=== PATIENT | female | born 1950 | race Caucasian/White ===

== ENCOUNTER 2019-03-19 16:36 | Outpatient (RCR) | payer MEDICARE, MEDICAID, SELFPAY | END 2019-04-02 00:01 | LOC: ONCMED 16:36 | PROVIDERS: Family Provider Nurse Practitioner Family; Visit Provider Internal Medicine Hematology & Oncology | DX: Z53.9 Procedure and treatment not carried out, unspecified reason (principal) ==

== ENCOUNTER 2019-03-31 06:55 | Emergency (ER) | payer MEDICARE, MEDICAID, SELFPAY | END 2019-03-31 08:37 | disposition home or self-care (01) | PROVIDERS: Emergency Provider Nurse Practitioner Family; Family Provider Nurse Practitioner Family; Visit Provider Nurse Practitioner Family | DX: S80.02XA Contusion of left knee, initial encounter (principal); S80.12XA Contusion of left lower leg, initial encounter; W19.XXXA Unspecified fall, initial encounter; Y92.009 Unspecified place in unspecified non-institutional (private) residence as the place of occurrence of the external cause; I25.2 Old myocardial infarction; E11.9 Type 2 diabetes mellitus without complications; Z95.0 Presence of cardiac pacemaker; Z87.891 Personal history of nicotine dependence; Z88.5 Allergy status to narcotic agent; Z91.040 Latex allergy status; Z88.0 Allergy status to penicillin; I50.9 Heart failure, unspecified | CPT/HCPCS: 73562; 73590; 99283 ==

== ENCOUNTER 2019-04-03 15:23 | Inpatient (IN) | payer OTHER, SELFPAY ==
[2019-04-03] VITALS (11 sets, daily range): BP systolic 153–212; BP diastolic 89–122; PULSE 72–140; RESP 12–22; O2SAT 97–100; BMI 40.3
--- NOTE | 2019-04-03 15:31 | ED_ITS ---
Entered by Anna Marie Garcia, acting as scribe for HPI - Altered Mental Status General: Chief Complaint: Altered Mental Status Stated Complaint: AMS Time Seen by Provider: 04/03/19 15:31 Source: EMS Mode of arrival: EMS Limitations: altered mental status History of Present Illness: HPI narrative: 69 yo f came to the er by ems for altered mental status and unresponsive. 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 Ems stated that when they got to the pts home she was altered. Severity: severe Review of Systems General: Reports: 10 or more systems reviewed and unremarkable except in HPI and below Const: Reports: other (unknown) Eyes: Reports: other (unknown) ENMT: Reports: other (unknown) Card: Reports: shortness of breath on exertion and other Resp: Reports: shortness of breath GI: Reports: other (unknown) : Reports: other (unknown) Musc: Reports: other (unknown) Skin/Breast: Denies: changes in skin color Neuro: Denies: headache Psych: Denies: anxiety Endo: Denies: excessive urination Jean Pierre/Lymph: Denies: easy bruising All/Imm: Denies: hives PFSH ED PFSH: Statuses (acute, chronic, etc) shown below reflect problem list status as previously entered and may not be historically accurate Social History Smoking and tobacco status: unknown if ever smoked Physical Exam Const: COMMON NORMALS: negative for alert EXAM LIMITATIONS: altered mental status NUTRITIONAL APPEARANCE: overweight HENMT: COMMON NORMALS: external ears normal EXTERNAL EAR: Yes external ears normal Eye: COMMON NORMALS: PERRL and conjunctivae normal GENERAL EYE: normal appearance of both eyes VISUAL ACUITY: Yes acuity normal VISUAL MADDOX: No peripheral vision loss PERIORBITAL: periorbital findings normal EYELID: eyelids normal CONJUNCTIVA: Yes conjunctivae normal SCLERA: sclerae normal PUPIL: Yes PERRL Neck/C-Spine: COMMON NORMALS: full ROM Chest: COMMONS NORMALS: inspection of chest normal Resp: EFFORT & INSPECTION: Yes actively coughing GI: COMMON NORMALS: normal to inspection, nondistended, normoactive bowel sounds INSPECTION: Yes normal to inspection : COMMON NORMALS: Yes no CVA tenderness BLADDER/KIDNEY EXAM: Yes no CVA tenderness and No CVA tenderness Back/Pelvis: COMMON NORMALS: no CVA tenderness GENERAL BACK: No CVA tenderness Neuro: SENSORIUM/ORIENTATION: No alert Psych: COMMON NORMALS: negative for mental status grossly normal Procedures Central Line Placement 1538: Time Out Performed: Yes (1537) MD Prep: mask, gown and gloves Central Line Prep: Povidone-Iodine 1% Local Anesthetic: lidocaine 1% Ultrasound Used for Placement: No Post Procedure: sutured in place, good blood return, all ports aspirated, flushed, capped and sterile dressing applied Complications: none Intubation Time out performed: Yes (1531) sedative: Etomidate paralytic: Succinylcholine Course ED course: Patient's family arrived and told me that the patient was on hospice and was supposed to be DO NOT RESUSCITATE and DO NOT INTUBATE. I discussed this with the family at length. After conferring with other family members the patient's daughter stated that the patient does not want to be on a ventilator and would want us to extubate her and place her on palliative care status. Patient was terminally extubated in the emergency room at 2135. Vital Signs: Vital signs: Vital Signs Pulse Rate 74 04/03/19 18:58 Respiratory Rate 18 04/03/19 18:58 Blood Pressure 153/94 04/03/19 18:58 Pulse Oximetry 100 04/03/19 18:58 MDM - Altered Mental Status Lab Data: Labs: Lab Results 04/03/19 04/03/19 04/03/19 Range/Units 15:50 15:50 15:50 WBC 3.7 L (4.0-10.0) 10^3/ uL RBC 3.14 L (4.1-5.3) 10^6/u L Hgb 10.3 L (11.5-15.3) g/dL Hct 31.9 L (37.0-47.0) % MCV 101.6 H (81-99) fL MCH 32.8 (28.0-34.0) pg MCHC 32.3 (30.0-36.0) g/dL RDW 16.0 H (12.1-15.1) % Plt Count 64 L (130-400) 10^3/c mm MPV 10.6 H (7.4-10.4) fL Neut % (Auto) 68.5 % Lymph % (Auto) 12.4 % Hubbard % (Auto) 11.0 % Eos % (Auto) 5.4 % Baso % (Auto) 1.9 % Neut # (Auto) 2.6 (1.8-7.7) 10^3/u L Lymph # (Auto) 0.5 L (0.8-4.8) 10^3/u L Hubbard # (Auto) 0.4 (0.2-0.9) 10^3/u L Eos # (Auto) 0.2 (0.0-0.8) 10^3/u L Baso # (Auto) 0.1 (0.0-0.1) 10^3/u L Nucleated RBC % (a uto) 0 % Nucleated RBCs # 0.0 /100WBC Sodium 133 L (136-145) mmol/L Potassium 5.7 H (3.5-5.1) mmol/L Chloride 103 (98-107) mmol/L Carbon Dioxide 23 (22-29) mmol/L Anion Gap 12.7 (5-19) BUN 22 (8-23) mg/dL Creatinine 1.0 H (0.5-0.9) mg/dL GFR Calculation 55.3 L (90-130) mL/min Glucose 158 H (74-106) mg/dL POC Glucose (70-110) mg/dL Lactate 1.7 (0.5-2.2) mmol/L Calcium 9.1 (8.8-10.2) mg/Dl Phosphorus 2.5 (2.5-4.5) mg/dL Magnesium 2.2 (1.7-2.3) mg/dL Total Bilirubin 3.5 H (0.15-1.2) mg/dL AST 70 H (0-32) U/L ALT 29 (0-33) U/L Alkaline Phosphata se 292 H (35-105) IU/L Ammonia (11-51) umol/L Troponin T Baselin e (0-10) ng/mL Troponin T 120 Min [place] (0-10) ng/mL Delta Troponin T (0-10) ABS# NT-Pro-B Natriuret Pep 90 (0-125) pg/mL Total Protein 7.0 (6.6-8.7) g/dL Albumin 2.6 L (3.5-5.2) g/dL Globulin 4.4 (1.3-4.6) g/dL Lipase 94 H (13-60) U/L Urine Color (Yellow) Urine Appearance (CLEAR) Urine pH (5-7) Ur Specific Gravit y (1.005-1.030) Urine Protein (Negative) Urine Glucose (UA) (Normal) Urine Ketones (Negative) Urine Occult Blood (Negative) Urine Nitrate (Negative) Urine Bilirubin (Negative) Urine Urobilinogen (Negative) mg/dL Ur Leukocyte Leesa ase (Negative) Urine RBC (0-2) /hpf Urine WBC (0-5) /hpf Ur Squamous Epith Cells (0-5) Urine Bacteria (NONE) Urine Mucus Urine Opiates Scre en (Negative) ng/mL Ur Barbiturates Sc reen (Negative) ng/mL Ur Phencyclidine S crn (Negative) ng/mL Ur Amphetamines Sc reen (Negative) ng/mL U Benzodiazepines Scrn (Negative) ng/mL Urine Cocaine Scre en (Negative) ng/mL U Marijuana (THC) Screen (Negative) ng/mL Ethyl Alcohol < 10 (0-10) mg/dL 04/03/19 04/03/19 04/03/19 Range/Units 15:50 15:50 15:53 WBC (4.0-10.0) 10^3/ uL RBC (4.1-5.3) 10^6/u L Hgb (11.5-15.3) g/dL Hct (37.0-47.0) % MCV (81-99) fL MCH (28.0-34.0) pg MCHC (30.0-36.0) g/dL RDW (12.1-15.1) % Plt Count (130-400) 10^3/c mm MPV (7.4-10.4) fL Neut % (Auto) % Lymph % (Auto) % Hubbard % (Auto) % Eos % (Auto) % Baso % (Auto) % Neut # (Auto) (1.8-7.7) 10^3/u L Lymph # (Auto) (0.8-4.8) 10^3/u L Hubbard # (Auto) (0.2-0.9) 10^3/u L Eos # (Auto) (0.0-0.8) 10^3/u L Baso # (Auto) (0.0-0.1) 10^3/u L Nucleated RBC % (a uto) % Nucleated RBCs # /100WBC Sodium (136-145) mmol/L Potassium (3.5-5.1) mmol/L Chloride (98-107) mmol/L Carbon Dioxide (22-29) mmol/L Anion Gap (5-19) BUN (8-23) mg/dL Creatinine (0.5-0.9) mg/dL GFR Calculation (90-130) mL/min Glucose (74-106) mg/dL POC Glucose (70-110) mg/dL Lactate (0.5-2.2) mmol/L Calcium (8.8-10.2) mg/Dl Phosphorus (2.5-4.5) mg/dL Magnesium (1.7-2.3) mg/dL Total Bilirubin (0.15-1.2) mg/dL AST (0-32) U/L ALT (0-33) U/L Alkaline Phosphata se (35-105) IU/L Ammonia 307 H (11-51) umol/L Troponin T Baselin e 31 H (0-10) ng/mL Troponin T 120 Min [place] (0-10) ng/mL Delta Troponin T (0-10) ABS# NT-Pro-B Natriuret Pep (0-125) pg/mL Total Protein (6.6-8.7) g/dL Albumin (3.5-5.2) g/dL Globulin (1.3-4.6) g/dL Lipase (13-60) U/L Urine Color Yellow (Yellow) Urine Appearance Clear (CLEAR) Urine pH 7.0 (5-7) Ur Specific Gravit y 1.010 (1.005-1.030) Urine Protein Neg (Negative) Urine Glucose (UA) Norm (Normal) Urine Ketones Negative (Negative) Urine Occult Blood Neg (Negative) Urine Nitrate Negative (Negative) Urine Bilirubin Neg (Negative) Urine Urobilinogen 1 H (Negative) mg/dL Ur Leukocyte Leesa ase Negative (Negative) Urine RBC 0-4 H (0-2) /hpf Urine WBC None (0-5) /hpf Ur Squamous Epith Cells 0-4 H (0-5) Urine Bacteria 1+ H (NONE) Urine Mucus 2+ Urine Opiates Scre en (Negative) ng/mL Ur Barbiturates Sc reen (Negative) ng/mL Ur Phencyclidine S crn (Negative) ng/mL Ur Amphetamines Sc reen (Negative) ng/mL U Benzodiazepines Scrn (Negative) ng/mL Urine Cocaine Scre en (Negative) ng/mL U Marijuana (THC) Screen (Negative) ng/mL Ethyl Alcohol (0-10) mg/dL 04/03/19 04/03/19 04/03/19 Range/Units 15:53 16:20 17:50 WBC (4.0-10.0) 10^3/ uL RBC (4.1-5.3) 10^6/u L Hgb (11.5-15.3) g/dL Hct (37.0-47.0) % MCV (81-99) fL MCH (28.0-34.0) pg MCHC (30.0-36.0) g/dL RDW (12.1-15.1) % Plt Count (130-400) 10^3/c mm MPV (7.4-10.4) fL Neut % (Auto) % Lymph % (Auto) % Hubbard % (Auto) % Eos % (Auto) % Baso % (Auto) % Neut # (Auto) (1.8-7.7) 10^3/u L Lymph # (Auto) (0.8-4.8) 10^3/u L Hubbard # (Auto) (0.2-0.9) 10^3/u L Eos # (Auto) (0.0-0.8) 10^3/u L Baso # (Auto) (0.0-0.1) 10^3/u L Nucleated RBC % (a uto) % Nucleated RBCs # /100WBC Sodium (136-145) mmol/L Potassium (3.5-5.1) mmol/L Chloride (98-107) mmol/L Carbon Dioxide (22-29) mmol/L Anion Gap (5-19) BUN (8-23) mg/dL Creatinine (0.5-0.9) mg/dL GFR Calculation (90-130) mL/min Glucose (74-106) mg/dL POC Glucose 128 (70-110) mg/dL Lactate (0.5-2.2) mmol/L Calcium (8.8-10.2) mg/Dl Phosphorus (2.5-4.5) mg/dL Magnesium (1.7-2.3) mg/dL Total Bilirubin (0.15-1.2) mg/dL AST (0-32) U/L ALT (0-33) U/L Alkaline Phosphata se (35-105) IU/L Ammonia (11-51) umol/L Troponin T Baselin e (0-10) ng/mL Troponin T 120 Min [place] 68.77 H (0-10) ng/mL Delta Troponin T 37.77 H (0-10) ABS# NT-Pro-B Natriuret Pep (0-125) pg/mL Total Protein (6.6-8.7) g/dL Albumin (3.5-5.2) g/dL Globulin (1.3-4.6) g/dL Lipase (13-60) U/L Urine Color (Yellow) Urine Appearance (CLEAR) Urine pH (5-7) Ur Specific Gravit y (1.005-1.030) Urine Protein (Negative) Urine Glucose (UA) (Normal) Urine Ketones (Negative) Urine Occult Blood (Negative) Urine Nitrate (Negative) Urine Bilirubin (Negative) Urine Urobilinogen (Negative) mg/dL Ur Leukocyte Leesa ase (Negative) Urine RBC (0-2) /hpf Urine WBC (0-5) /hpf Ur Squamous Epith Cells (0-5) Urine Bacteria (NONE) Urine Mucus Urine Opiates Scre en Negative (Negative) ng/mL Ur Barbiturates Sc reen Negative (Negative) ng/mL Ur Phencyclidine S crn Negative (Negative) ng/mL Ur Amphetamines Sc reen Negative (Negative) ng/mL U Benzodiazepines Scrn Negative (Negative) ng/mL Urine Cocaine Scre en Negative (Negative) ng/mL U Marijuana (THC) Screen Negative (Negative) ng/mL Ethyl Alcohol (0-10) mg/dL Discharge Plan Discharge Condition: Critical Prescriptions: No Action Unable to Assess RF: 0 Coding Level of Care Code ED 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
--- NOTE | 2019-04-03 15:54 | XRR_ITS ---
PROCEDURE INFORMATION: Exam: XR Chest, 1 View Exam date and time: 04/03/2019 3:59 PM Age: 69 years old Clinical indication: Device placement; Other: Central line placement; Additional info: Unknown TECHNIQUE: Imaging protocol: XR of the chest Views: 1 view. COMPARISON: CR Chest 1 [place] [id number] 03/15/2019 9:39 AM FINDINGS: Tubes, catheters and devices: There is an ET tube with tip below the clavicular heads but above the parker. There is an orogastric tube with tip off the film. There is a right subclavian central line with tip in the right atrium. A pacemaker device is present, and its leads are in appropriate position. Lungs: Nonspecific increasing bibasilar consolidation is present, consistent with atelectasis, edema, or pneumonia. This is greater on the left. There is also mild increased vascular congestion/CHF compared to the prior exam. Pleural space: Unremarkable. No pleural effusion. No pneumothorax. Heart/Mediastinum: The heart is enlarged. Bones/joints: Unremarkable. XR/XR chest 1V portable [id number] IMPRESSION: 1. There is an ET tube with tip below the clavicular heads but above the parker. There is an orogastric tube with tip off the film. There is a right subclavian central line with tip in the right atrium. 2. Nonspecific increasing bibasilar consolidation is present, consistent with atelectasis, edema, or pneumonia. This is greater on the left. Increasing vascular congestion/CHF.
--- NOTE | 2019-04-03 15:57 | ECG_ITS ---
Measurements Intervals [place] Rate: 102 P: 41 MI: 212 QRS: -57 QRSD: 135 T: 77 QT: 352 QTc: 459 SINUS TACHYCARDIA WITH FIRST DEGREE AV BLOCK WITH OCCASIONAL VENTRICULAR PREMATURE COMPLEXES LEFT AXIS DEVIATION [QRS AXIS < -30] INTRAVENTRICULAR CONDUCTION DELAY [130+ ms QRS DURATION] ANTEROLATERAL MYOCARDIAL INFARCTION , OF INDETERMINATE AGE Compared to ECG 03/15/2019 09:29:29 First degree AV block now present Left-axis deviation now present Intraventricular conduction delay now present Sinus rhythm no longer present Left anterior fascicular block no longer present Myocardial infarct finding still present Electronically Signed On 04-04-2019 6:54:08 FELT PULLER by Ann Lund M.D. [id number]
[2019-04-03] MEDS: succinylcholine 20 mg/mL SDV 10mL 200 MG IVP (15:58)
[2019-04-03 16:05] LABS: Add RBC Morph No; Basophils # 0.1 10^3/uL (0.0-0.1); Basophils % 1.9 %; Eosinophils # 0.2 10^3/uL (0.0-0.8); Eosinophils % 5.4 %; Hematocrit 31.9 % (37.0-47.0); Hemoglobin 10.3 g/dL (11.5-15.3); Lymphocytes # 0.5 10^3/uL (0.8-4.8); Lymphocytes % 12.4 %; Mean Corpuscular HGB Conc 32.3 g/dL (30.0-36.0); Mean Corpuscular Hemoglobin 32.8 pg (28.0-34.0); Mean Corpuscular Volume 101.6 fL (81-99); Mean Platelet Volume 10.6 fL (7.4-10.4); Monocytes # 0.4 10^3/uL (0.2-0.9); Neutrophils # 2.6 10^3/uL (1.8-7.7); Neutrophils % 68.5 %; Nucleated Red Blood Cells % 0 %; Platelet Count 64 10^3/cmm (130-400); Red Blood Count 3.14 10^6/uL (4.1-5.3); White Blood Count 3.7 10^3/uL (4.0-10.0)
--- NOTE | 2019-04-03 16:08 | PM.CONSULT ---
Providers/Reason For Consult Consulting Physican/Specialty*: Dr. Lund, cardiology Reason for Consult*: Abnormal EKG History of Present Illness History of Present Illness Justina Swanson is a 69 year old female with PMHx of DM-2, hypothyroidism, s/p PPM in 2008 and generator change in 2017, h/o lupus, h/o esophageal varices, former smoker and fibromyalgia. She uses PRN O2 at 4L at home and has Non alcoholic liver cirrhosis. # EKG with sinus arrhythmia. LAFB and IVCD. Meds/Allergies Home Medications and Allergies Home Medications Medication Instructions Recorded Confirmed Type Unable to Assess 04/03/19 04/03/19 History Allergies Allergy/AdvReac Type Severity Reaction Status Date / Time Unable to Assess Allergy Unverified 04/03/19 16:01 PFSH Acute PFSH: Statuses (acute, chronic, etc) shown below reflect problem list status as previously entered and may not be historically accurate Social History Smoking and tobacco status: unknown if ever smoked Vitals/I&O/Wt Last Vital Signs Pulse 140 H 04/03/19 15:40 Resp 22 H 04/03/19 15:55 BP 212/122 04/03/19 15:40 Pulse Ox 99 04/03/19 15:40 Weight last 48 hrs Weight 250 lb Physical Exam Urinary Catheter Management^: Romo: Cath Placed During This Visit: no Data Labs: Other Labs: All Labs last 24 hrs except CBC/BMP 04/03/19 15:50 RBC 3.14 L MCV 101.6 H MCH 32.8 MCHC 32.3 RDW 16.0 H MPV 10.6 H Neut % (Auto) 68.5 Lymph % (Auto) 12.4 [place] % (Auto) 11.0 Eos % (Auto) 5.4 Baso % (Auto) 1.9 Neut # (Auto) 2.6 Lymph # (Auto) 0.5 L [place] # (Auto) 0.4 Eos # (Auto) 0.2 Baso # (Auto) 0.1 Nucleated RBC % (a uto) 0 Nucleated RBCs # 0.0 A&P Assessment and plan (1) Altered mental status: Status: Acute Code(s): R41.82 - Altered mental status, unspecified (2) Respiratory failure: Status: Acute Code(s): J96.90 - Respiratory failure, unspecified, unspecified whether with hypoxia or hypercapnia (3) Abnormal electrocardiogram [ECG] [EKG]: Status: Acute Code(s): R94.31 - Abnormal electrocardiogram [ECG] [EKG] Coding Level of Care Code Acute Returned Goods Inspector for [facility] Fwd Diagnoses Altered mental status R41.82 Respiratory failure J96.90 Abnormal electrocardiogram [ECG] [EKG] R94.31
[2019-04-03 16:19] LABS: Ammonia 307 umol/L (11-51); Lactate (Lactic Acid level) 1.7 mmol/L (0.5-2.2)
--- NOTE | 2019-04-03 16:25 | PC.NURSE ---
Pt was brought to ED via EMS, pt was unresponsive and did not respond to painful stimuli. Pt placed on zoll, EKG performed, IV access obtained in right shoulder with 18g peripheral IV. At 1529, 20mg Etomidate IVP was given, followed by 10ml NS flush, followed by 200mg Succinylcholine, followed by another 10ml NS flush. Pt was then intubated with 8.0tube, secured 23 at the lip by Dr Lopez, RT at bedside. 14 Fr OG tube was placed at 1538, 18fr luis catheter placed at 1540 with good urine return, clear yellow urine, with sample obtained, labeled and sent to lab. Central line placed by Dr Lopez at bedside at 1541 (see IV catheter placement documentation) and xray at bedside at 1546 to confirm placement of ET tube, OG tube, and central line. Blood drawn from central line by this RN, 10ml wasted, 20ml drawn and labeled, sent to lab, and central line flushed with 30ml sterile saline. BSG performed by this RN at bedside, 128mg/dL. Pt remains intubated at this time. Family updated on pt status.
[2019-04-03 16:28] LABS: Glucose Point of Care 128 mg/dL (70-110)
[2019-04-03 16:29] LABS: Troponin(5th) Baseline 31 ng/mL (0-10)
[2019-04-03 16:30] LABS: Alanine Aminotransferase 29 U/L (0-33); Albumin Level 2.6 g/dL (3.5-5.2); Alkaline Phosphatase 292 IU/L (35-105); Anion Gap 12.7 (5-19); Aspartate Amino Transferase 70 U/L (0-32); Blood Urea Nitrogen 22 mg/dL (8-23); Calcium 9.1 mg/Dl (8.8-10.2); Carbon Dioxide 23 mmol/L (22-29); Chloride 103 mmol/L (98-107); Globulin 4.4 g/dL (1.3-4.6); Glomerular Filtration Rate 55.3 mL/min (90-130); Glucose 158 mg/dL (74-106); Magnesium 2.2 mg/dL (1.7-2.3); NT Pro B Type Natriuretic Pept 90 pg/mL (0-125); Phosphorus 2.5 mg/dL (2.5-4.5); Potassium 5.7 mmol/L (3.5-5.1); Sodium 133 mmol/L (136-145); Total Bilirubin 3.5 mg/dL (0.15-1.2)
[2019-04-03 16:35] LABS: Bilirubin Urine Neg (Negative); Blood Urine Neg (Negative); Glucose Urine UA Norm (Normal); Ketones Urine Negative (Negative); Leukocyte Esterase Urine Negative (Negative); Nitrate Urine Negative (Negative); Protein Urine Neg (Negative); Urine Appearance Clear (CLEAR); Urine Color Yellow (Yellow); Urobilinogen Urine 1 mg/dL (Negative)
[2019-04-03 16:43] LABS: Alcohol Level < 10 mg/dL (0-10); Lipase 94 U/L (13-60)
[2019-04-03 16:43] LABS: Add Urine Culture? No; Bacteria Urine 1+; Mucus Urine 2+; RBC Urine 0-4 /hpf (0-2); Squamous Epithelial Cell Urine 0-4 (0-5)
[2019-04-03] MEDS: sodium chloride 0.9% 500 ML IV (16:49)
[2019-04-03 16:52] LABS: Amphetamines Screen Urine Negative (Negative); Barbiturates Screen Urine Negative (Negative); Benzodiazepines Screen Urine Negative (Negative); Cocaine Screen Urine Negative (Negative); Opiate Screen Urine Negative (Negative); PCP Screen Urine Negative (Negative); THC Screen Urine Negative (Negative)
[2019-04-03] MEDS: propofol 1,000 MG/100 ML INJ 3.4 MG IV (17:10)
[2019-04-03 18:51] LABS: Troponin 5 2HR 68.77 ng/mL (0-10)
[2019-04-03 18:52] LABS: Troponin 5 2HR Delta 37.77 ABS# (0-10)
--- NOTE | 2019-04-03 19:13 | PC.NURSE ---
Report received from GREY Kumar and transferred to GREY Aguilar.
--- NOTE | 2019-04-03 21:57 | ECG_ITS ---
Measurements Intervals [place] Rate: 77 P: 22 MS: 225 QRS: -56 QRSD: 137 T: 59 QT: 433 QTc: 493 SINUS RHYTHM WITH FIRST DEGREE AV BLOCK LEFT AXIS DEVIATION INTRAVENTRICULAR CONDUCTION DELAY POSSIBLE ANTERIOR MYOCARDIAL INFARCTION , OF INDETERMINATE AGE Compared to ECG 03/15/2019 09:29:29 First degree AV block now present Intraventricular conduction delay now present Left anterior fascicular block no longer present Myocardial infarct finding still present Electronically Signed On 04-04-2019 7:01:34 LEASE ANALYST by Ann Lund M.D. [id number]
[2019-04-03 23:23] LABS: Troponin 5 6HR 211.8 ng/L (0-10); Troponin 5 6HR Delta 170 ng/L (0-12)
[2019-04-04] VITALS (9 sets, daily range): BP systolic 148–184; BP diastolic 60–95; PULSE 61–79; RESP 14–22; TEMP 36.4–36.9; O2SAT 95–100
--- NOTE | 2019-04-04 00:43 | PM.HP ---
Providers/Chief Complaint Chief Complaint: AMS History of Present Illness Justina Swanson is a 69 year old female who carries diagnosis of liver cirrhosis secondary to lupus status post TIPS procedure history of multiple admissions secondary to hepatic encephalopathy, pancytopenia, type 2 diabetes chronic kidney disease stage III, morbid obesity and hypothyroid myxedema, she was discharged from the hospital on relatively higher dose of levothyroxine when she was found to have extremely high level of TSH on previous admission. She was brought in by EMS today when she was found altered at home, patient was intubated by ER physician Dr. Aguilar, daughter called and said patient was on hospice services at home and she is DNR/DNI and she was terminally extubated around 2134, hospice nurse was also called who recommended watching her for any distress and treat her to keep her comfortable. Hospitalist service was requested to admit her to medical floor and keep her on comfort measures/hospice current blood pressure when I evaluated the patient was 180s/100, telemetry was showing normal sinus rhythm heart rate 70, patient was extubated, she was withdrawing to painful stimuli, she did not open her eyes to me, she was moving her left arm and leg. Review of Systems Narrative: Patient was initially intubated because of altered mental status and was terminally extubated She is morbidly obese female with myxedema, Not able to provide any details she is not opening her eyes review of symptoms limited Medications/Allergies Home Medications Medication Instructions Recorded Confirmed Last Taken Type Unable to Assess 04/03/19 04/03/19 Unknown History Allergies Allergy/AdvReac Type Severity Reaction Status Date / Time Unable to Assess Allergy Unverified 04/03/19 16:01 PFSH Acute PFSH: Statuses (acute, chronic, etc) shown below reflect problem list status as previously entered and may not be historically accurate Medical History (Updated 04/04/19 @ 00:47 by Carlo Mcmillan MD) Hepatic encephalopathy (Acute) Liver cirrhosis (Acute) Lupus (Acute) Myxedema coma (Acute) Pancytopenia (Acute) Type 2 diabetes mellitus (Acute) Surgical History (Updated 04/04/19 @ 00:48 by Carlo Mcmillan MD) H/O knee surgery (Acute) History of appendectomy (Acute) History of permanent cardiac pacemaker placement (Acute) S/P TIPS (transjugular intrahepatic portosystemic shunt) (Acute) Family History (Updated 04/04/19 @ 00:48 by Carlo Mcmillan MD) Mother Alzheimer's dementia Social History (Updated 04/04/19 @ 00:49 by Carlo Mcmillan MD) Smoking and tobacco status: never smoked Alcohol intake: never Substance/Drug Use: never Marital status: / Vitals/I&O/Wt Last Vital Signs Pulse 80 04/03/19 23:00 Resp 12 04/03/19 23:00 BP 183/89 04/03/19 23:00 Pulse Ox 99 04/03/19 23:00 04/03/19 04/03/19 04/04/19 14:59 22:59 06:59 Intake Total 7.084 / 7.084 Balance 7.084 / 7.084 Weight last 48 hrs Weight 113.398 kg Physical Exam Narrative: EXAM NARRATIVE: Morbidly obese female, myxedema, appearance, cushingoid appearance, Patient is not opening her eyes at all to painful stimuli, she has withdrawal reflex to painful stimuli she is only moving her left arm Pursed lip breathing heart rate 70, Breath sounds diminished with rhonchi bilaterally, Abdomen soft, distended, bowel sounds sluggish Neurological status not able to be assessed because of her confusion and altered mental status Lower extremities nonpitting edema Skin dry Hirsutism positive 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 (5) Liver cirrhosis: Status: Acute Code(s): K74.60 - Unspecified cirrhosis of liver (6) Lupus: Status: Acute Code(s): M32.9 - Systemic lupus erythematosus, unspecified (7) Hepatic encephalopathy: Status: Acute Code(s): K72.90 - Hepatic failure, unspecified without coma (8) Type 2 diabetes mellitus: Status: Acute Code(s): E11.9 - Type 2 diabetes mellitus without complications (9) Pancytopenia: Status: Acute Code(s): D61.818 - Other pancytopenia Altered mental status multifactorial secondary to hepatic encephalopathy, myxedema, Initially intubated by ER physician for altered mental status and inability to protect airways, daughter called and updated that she was DNR/DNI, she was extubated terminally in ER, hospice nurse has been updated Currently patient does not look in any distress, her heart rate is 70, she is hypertensive, no respiratory distress, she is unresponsive, not opening her eyes GCS less than 8 Plan is to keep her comfortable with palliative/hospice approach I would not resume any of her home medications at this point Hospice referral Attestations Medical Necessity Statement*: Patient has been extubated terminally, she will most likely be discharged to hospice care in less than 48 hours Time Spent in Patient Care: Greater than 35 minutes 45 Coding Level of Care Code Acute Lubrication Servicer for Chg Fwd Diagnoses Altered mental status R41.82 Respiratory failure J96.90 Abnormal electrocardiogram [ECG] [EKG] R94.31 Myxedema coma E03.5 Liver cirrhosis K74.60 Lupus M32.9 Hepatic encephalopathy K72.90 Type 2 diabetes mellitus E11.9 Pancytopenia D61.818
[2019-04-04] MEDS: morphine 4 mg/mL SDV 1 mL 2 MG IV ×2 (08:44→14:12)
--- NOTE | 2019-04-04 13:49 | PM.PN ---
Subjective Subjective: Interval history: Patient admitted overnight. Overnight labs and history reviewed. Patient was extubated last night and put on comfort care measures. However the patient is awake this morning. She is able to have a conversation though is confused. She does keep repeating her date of . She is only able to answer some questions regarding orientation. However she is sitting up in bed and asking to eat food at this time. Medications: Reviewed: Yes Vitals/I&O/Wt Last Vital Signs Temp 97.8 F 04/04/19 11:54 Pulse 78 04/04/19 11:54 Resp 18 04/04/19 11:54 BP 149/77 04/04/19 11:54 Pulse Ox 96 04/04/19 11:54 04/03/19 04/04/19 04/04/19 22:59 06:59 14:59 Intake Total 7.084 / 7.084 63.823 / 70.907 240 / 240 Output Total 700 / 700 Balance 7.084 / 7.084 -636.177 / -629.093 240 / 240 Weight last 48 hrs Weight 113.398 kg Physical Exam Narrative: EXAM NARRATIVE: General patient is awake, participating in conversation however she is confused. She was able to correctly state her name date of and age for me however when I asked her questions as to place and orientation she kept repeating her date of . She was able to string sentences together and has asked me if she could eat and also was asked to put on the TV. Overall compared to last night appears to be doing better. Does not recall the events leading up to hospitalization. CVS S1-S2 normal no murmurs rubs or gallops Respiratory system clear to auscultation bilaterally GI no abdominal distention. Soft and nontender. Bowel sounds are heard. Extremities some nonpitting edema over bilateral extremities overall patient's habitus is obese. Hirsutism noted over her face. 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 (5) Liver cirrhosis: Status: Acute Code(s): K74.60 - Unspecified cirrhosis of liver (6) Lupus: Status: Acute Code(s): M32.9 - Systemic lupus erythematosus, unspecified (7) Hepatic encephalopathy: Status: Acute Code(s): K72.90 - Hepatic failure, unspecified without coma (8) Type 2 diabetes mellitus: Status: Acute Code(s): E11.9 - Type 2 diabetes mellitus without complications (9) Pancytopenia: Status: Acute Code(s): D61.818 - Other pancytopenia Altered mental status multifactorial secondary to hepatic encephalopathy which has been a longstanding issue for the patient for which she is on home hospice. Her daughter lives in the same apartment building and checks on her multiple times a day. The hospice nurse is at bedside and states that even under home hospice the patient has variable mental status. She is often found to be confused but on other days appears to be lucid. EMS was called by the daughter yesterday after the patient was noted to be unresponsive. Initially intubated by ER physician for altered mental status and inability to protect airways, daughter called and updated that she was DNR/DNI, she was extubated terminally in ER. Overnight patient was hypertensive, unresponsive, not opening her eyes GCS less than 8. However this morning since being extubated she is more alert awake sitting in bed and having a conversation although she is confused and repetitive. Plan is to keep her comfortable with palliative/hospice approach. However it is felt that returning home alone with home hospice is not going to be a very safe option for her as she is unable to care for herself due to her advanced confusion. We will make arrangements to arrange for hospice at a nursing facility which by 4 appears to be the safest option. I I will resume her home medications that she was having as part of her hospice assessment Hospice referral for placement at SNF. Attestations Medical Necessity Statement*: Admitted for altered mental status. Now social professionals arranging for discharge to a custodial facility with hospice. Coding Level of Care Code Acute Historian Research Assistant for Chg Fwd Diagnoses Altered mental status R41.82 Respiratory failure J96.90 Abnormal electrocardiogram [ECG] [EKG] R94.31 Myxedema coma E03.5 Liver cirrhosis K74.60 Lupus M32.9 Hepatic encephalopathy K72.90 Type 2 diabetes mellitus E11.9 Pancytopenia D61.818
[2019-04-04] MEDS: ondansetron 2 mg/ML SDV 2 mL 4 MG PO ×2 (14:14→20:22)
[2019-04-04] MEDS: LORazepam 0.5 mg Tablet PO (14:14)
--- NOTE | 2019-04-04 14:42 | PC.CHAP ---
Pastoral Care Encounter/Spiritual Assessment Type of Contact [] Declined apparatus cleaner visit [] Patient/Family/Request visit [] Outpatient visit [] Follow-up visit [] Physician referral [] Code/Alert [x] Routine visit [] Staff referral [] Actively dying [] Patient sleeping [] Family support [] [] Out of room [] Palliative care [] [] Receiving care in room [] Pre-surgical visit [] Trauma [] Long length of stay [] ICU visit [] Other: Relational/Emotional Strength [x] Patient feels connected with others/family/visitors/staff [] Distress [] Loneliness/isolation [] Abandonment Spirituality of Patient [x] Person of Malina [x] Attends Religion of their Malina [x] Believes in Prayer [] Reads Bible or Alevism materials [] There are Spiritual issues to be addressed Head Of Commission Department Interventions [x] Prayer [x] Active listening [x] Non-anxious presence [x] Spiritual/emotional support [] Crisis/trauma care [] Spiritual counseling [] Bereavement support [] Provided bereavement packet [] Provided Bible/devotional materials [] Provided toy/stuffed animal, coloring book to patient or family member [x] Completed spiritual assessment [] Provided Communion [] Anointing/[place] [] Salvation [] Other: Impact on Illness or Injury [] Angry [] Fearful [] Anxious [] Often cries [] Exhaustion [] Unable to work [] Unable to attend presybeterian [] Unable to walk/stand [] Unable to read [] Unable to drive [] Unable to eat/drink [] Unable to sleep [] Unable to be with family [x] Other: Did not notice any. Summary Head Of Commission Department Michelle visited with patient, she was sick and wanted nurse she wasn't feeling well. Time spent with patient 5 minutes
[2019-04-04] MEDS: lactulose oral liq 20 gm/30 mL UDC PO (16:44)
[2019-04-04] MEDS: TRAMadol 50 mg Tablet PO (16:44)
[2019-04-04] MEDS: gabapentin 300 mg Capsule PO ×2 (16:44→21:36)
[2019-04-05 03:31] VITALS: BP 152/63; PULSE 65; RESP 18; TEMP 36.9; O2SAT 94
[2019-04-05] MEDS: LORazepam 0.5 mg Tablet PO (04:25)
[2019-04-05] MEDS: lactulose oral liq 20 gm/30 mL UDC PO (04:36)
[2019-04-05 07:38] VITALS: BP 124/65; PULSE 73; RESP 18; TEMP 36.7; O2SAT 94
[2019-04-05] MEDS: levothyroxine 100 mcg Tablet 200 MCG PO (09:00)
[2019-04-05] MEDS: FUROsemide 20 mg Tablet PO (09:01)
[2019-04-05] MEDS: gabapentin 300 mg Capsule PO ×2 (09:01→12:21)
[2019-04-05] MEDS: metformin 500 mg Tablet PO (09:02)
[2019-04-05] MEDS: metoprolol succinate ER (24 HR) 25 mg Tablet PO (09:02)
[2019-04-05 11:56] VITALS: BP 130/76; PULSE 69; RESP 18; TEMP 36.7; O2SAT 100
--- NOTE | 2019-04-05 13:15 | PC.CHAP ---
Pastoral Care Encounter/Spiritual Assessment Type of Contact [] Declined brazing machine feeder visit [] Patient/Family/Request visit [] Outpatient visit [] Follow-up visit [] Physician referral [] Code/Alert [x] Routine visit [] Staff referral [] Actively dying [] Patient sleeping [] Family support [] [] Out of room [] Palliative care [] [] Receiving care in room [] Pre-surgical visit [] Trauma [] Long length of stay [] ICU visit [] Other: Relational/Emotional Strength [x] Patient feels connected with others/family/visitors/staff [] Distress [] Loneliness/isolation [] Abandonment Spirituality of Patient [x] Person of Malina [] Attends Jain of their Malina [x] Believes in Prayer [] Reads Bible or Rastafari materials [] There are Spiritual issues to be addressed Vocational Training Instructor Interventions [x] Prayer [x] Active listening [x] Non-anxious presence [x] Spiritual/emotional support [] Crisis/trauma care [x] Spiritual counseling [] Bereavement support [] Provided bereavement packet [] Provided Bible/devotional materials [] Provided toy/stuffed animal, coloring book to patient or family member [x] Completed spiritual assessment [] Provided Communion [] Anointing/[place] [] Salvation [] Other: Impact on Illness or Injury [] Angry [] Fearful [] Anxious [] Often cries [] Exhaustion [] Unable to work [x] Unable to attend amish [] Unable to walk/stand [x] Unable to read [] Unable to drive [] Unable to eat/drink [] Unable to sleep [] Unable to be with family [] Other: Summary Lenka Maria Time spent with patient 8-minutes
[2019-04-05 14:41] VITALS: BP 184/90; PULSE 79; RESP 18; TEMP 36.7; O2SAT 100
[2019-04-05 15:54] VITALS: BP 117/79; PULSE 75; RESP 20; TEMP 36.8; O2SAT 100
--- NOTE | 2019-04-12 16:04 | PM.DCS ---
Discharge Providers Date of Admission: 04/04/19 00:58 Attending Provider at Admission: Carlo Mcmillan MD Attending Provider at Discharge: Camille Torres MD Diagnoses at Discharge Discharge Diagnosis (1) Altered mental status: Status: Acute (2) Respiratory failure: Status: Acute (3) Abnormal electrocardiogram [ECG] [EKG]: Status: Acute (4) Myxedema coma: Status: Resolved (5) Liver cirrhosis: Status: Acute (6) Lupus: Status: Acute (7) Hepatic encephalopathy: Status: Acute (8) Type 2 diabetes mellitus: Status: Acute (9) Pancytopenia: Status: Acute Reason for Visit Reason for Visit: Reason For Visit: AMS Hospital Course Discharge Summary: Justina Swanson is a 69 year old female who carries diagnosis of liver cirrhosis secondary to lupus status post TIPS procedure history of multiple admissions secondary to hepatic encephalopathy, pancytopenia, type 2 diabetes chronic kidney disease stage III, morbid obesity and hypothyroid myxedema. She was brought in by EMS when she was found altered at home, patient was intubated by ER physician Dr. Aguilar, daughter called and said patient was on hospice services at home and she is DNR/DNI and she was terminally extubated the same night at 2135, hospice nurse was also called who recommended watching her for any distress and treat her to keep her comfortable. Hospitalist service was requested to admit her to medical floor and keep her on comfort measures/hospice. When first eveluated by diplomatic interpreter/translator, patient was only withdrawing to painful stimuli, she did not open her eyes to me, she was moving her left arm and leg. Overnight patient was hypertensive, unresponsive, not opening her eyes GCS less than 8. However the next morning since being extubated she is more alert awake sitting in bed and having a conversation although she is confused and repetitive. Plan therefore was to keep her comfortable with palliative/hospice approach. However it is felt that returning home alone with home hospice is not going to be a very safe option for her as she is unable to care for herself due to her advanced confusion. This was discussed extensively with her daughter who elected to place her at SNF with hospice services. She was then transferred with resumption of her home/hospice medications. Physical Exam Narrative: EXAM NARRATIVE: GEN: Awake, alert disoriented, sitting in bed, conversing but confused, no acute distress CVS: S1S2 N RS: CTA B/L except crackles over RUL Abd: Soft, nt/nd , bs+ Urinary Catheter Management^: Romo: Cath Placed During This Visit: no Discharge Data Data Completed and Pending: Completed Studies During Hospitalization Category Date Time Status XR chest 1V dorene ble [id number] Urgent Exams 04/03/19 15:54 Completed Vitals: Last Vital Signs Temp 98.2 F 04/05/19 15:54 Pulse 75 04/05/19 15:54 Resp 20 H 04/05/19 15:54 BP 117/79 04/05/19 15:54 Pulse Ox 100 04/05/19 15:54 Discharge Plan Discharge Patient Disposition: Hospice - Medical Facility Condition: Stable Prescriptions: New metformin 500 mg Tablet 500 mg PO DAILY 30 Days RF: 0 tramadol 50 mg Tablet 50 mg PO Q4H PRN (Reason: Moderate Pain) 30 Days RF: 0 Levoxyl 100 mcg Tablet 200 mcg PO DAILY 30 Days RF: 0 lorazepam 0.5 mg Tablet 0.5 mg PO TID PRN (Reason: Anxiety) 30 Days RF: 0 gabapentin 300 mg Capsule 300 mg PO QID 30 Days RF: 0 furosemide 20 mg Tablet 20 mg PO DAILY@0800 30 Days RF: 0 metoprolol succinate 25 mg Tablet Extended Release 24 Hr 25 mg PO DAILY Qty: 30 RF: 0 ondansetron HCl (PF) 4 mg/2 mL Solution 4 mg PO Q4H PRN (Reason: Nausea And Vomiting) 30 Days RF: 0 Xifaxan 550 mg Tablet 550 mg PO BID 30 Days Qty: 60 RF: 0 lactulose 20 gram/30 mL Solution 20 g PO Q12H 30 Days RF: 0 Discharge Orders: Discharge Order (Routine); Ordered 04/05/19 Ordered By: Camille Torres Referrals: [facility] [Outside] [facility] [Outside] Deepak Abbott, ONLINE ADVERTISING MANAGER [Family Provider] - (Please follow up as needed.) Discharge Diet: Usual diet Discharge Activity: Resume usual activity Patient Instructions: Type 2 Diabetes, Cirrhosis (GEN), Hepatic Encephalopathy (GEN) Discharge Date/Time: 04/05/19 18:31 Discharge Attestations Time Spent in Discharge Care*: greater than 30 min Quality Metrics Clinical Quality Measures During this hospital stay, did patient experience: None Coding Level of Care Code Acute Residential Sales Representative for Chg Fwd Diagnoses Altered mental status R41.82 Respiratory failure J96.90 Abnormal electrocardiogram [ECG] [EKG] R94.31 Myxedema coma E03.5 Liver cirrhosis K74.60 Lupus M32.9 Hepatic encephalopathy K72.90 Type 2 diabetes mellitus E11.9 Pancytopenia D61.818
== END 2019-04-05 18:31 | disposition hospice, inpatient (51) | DRG 441 ==
LOC: ER 16:47 → MEDSURG 04-04 00:58
PROVIDERS: Admitting Provider Internal Medicine; Emergency Provider Family Medicine; Family Provider Nurse Practitioner Family; Visit Provider Internal Medicine
DX: K72.00 Acute and subacute hepatic failure without coma (principal); E03.5 Myxedema coma; J96.90 Respiratory failure, unspecified, unspecified whether with hypoxia or hypercapnia; Z68.41 Body mass index [BMI] 40.0-44.9, adult; D61.818 Other pancytopenia; Z51.5 Encounter for palliative care; R94.31 Abnormal electrocardiogram [ECG] [EKG]; K74.69 Other cirrhosis of liver; E11.22 Type 2 diabetes mellitus with diabetic chronic kidney disease; N18.3 Chronic kidney disease, stage 3 (moderate); Z66 Do not resuscitate; E66.01 Morbid (severe) obesity due to excess calories; M32.9 Systemic lupus erythematosus, unspecified; Z95.0 Presence of cardiac pacemaker; I12.9 Hypertensive chronic kidney disease with stage 1 through stage 4 chronic kidney disease, or unspecified chronic kidney disease; Z79.84 Long term (current) use of oral hypoglycemic drugs
CPT/HCPCS: 31500; 36415; 36416; 36556; 51702; 71045; 80053; 80307; 81001; 82140; 82962; 83605; 83690; 83735; 83880; 84100; 84484; 85025; 87070; 87205; 93005; 96374; 99284; A4222; C1751; J0282; J0330; J2270; J2405; J2704; J3490; J7040

== ENCOUNTER 2019-06-03 10:26 | Outpatient (CLI) | payer OTHER, SELFPAY ==
--- NOTE | 2019-06-03 10:37 | MM_ITS ---
WS: [id number] DIAGNOSTIC BILATERAL DIGITAL MAMMOGRAM WITH CAD HISTORY: LT BREAST/ARM SWELLING AND TENDERNESS COMPARISON: 01/25/2018, 06/21/2017 and 06/16/2016 TECHNIQUE: Bilateral craniocaudad, mediolateral oblique, and mediolateral views are submitted. Comput er aided detection utilized. There is a very limited evaluation of the breasts. Very limited evaluation of the breast due to patie nt's clinical condition. Only a small portion of the breasts have been imaged. Ultrasound is recommen ded. The caregiver that was with Mrs. Swanson was not able to remain for the recommended breast ultraso und. Breast composition: The breasts are heterogeneously dense, which may obscure small masses. There is significant bilateral soft tissue thickening involving each breast with thickening of the br east parenchyma and trabecula. Although no discrete mass is identified the bilateral skin thickening is concerning. MM/[place] [id number] IMPRESSION: BI-RADS: 0-Incomplete: Need additional imaging evaluation FOLLOW UP: Need Additional Imaging Bilateral breast ultrasound and axillary ultrasound recommended. 1. Very limited evaluation of the breast due to patient's clinical condition. Only a small portion of each breast was included on the mammogram. Ultrasound w as recommended but patient's caregiver was unable to remain for that examinatio n at this time. 2. Inflammatory breast cancer needs to be considered as a possible etiology. 3. As the mammographic appearance of the breasts are very similar the possibil ity of fluid overload/CHF and cellulitis should be considered also. That would not explain a mass lesion. Also redness and soft tissue thickening was a histor y concerning the LEFT breast. Inflammatory breast cancer should be considered.
== END 2019-06-03 10:27 | disposition home or self-care (01) ==
LOC: RADSHAW 10:32
PROVIDERS: Family Provider Nurse Practitioner Family; PCP Internal Medicine Cardiovascular Disease; Visit Provider Nurse Practitioner Family
DX: N64.4 Mastodynia (principal); R92.2 Inconclusive mammogram
CPT/HCPCS: 77066